=== PATIENT | male | born 1955 | race Caucasian/White ===

== ENCOUNTER → 2019-10-30 13:07 | Outpatient (CLI) | payer OTHER, SELFPAY ==
[2019-10-30 13:21] LABS: Basophils % 0.4 % (0.1-2.0); Eosinophils # 0.1 K/mm3 (0.0-0.4); Eosinophils % 1.1 % (0.1-12.0); Hematocrit 46.2 % (42.0-52.0); Hemoglobin 16.2 g/dL (14.1-18.0); Lymphocytes # 1.6 K/mm3 (0.7-4.5); Lymphocytes % 26.3 % (10-50); Mean Corpuscular HGB Conc 35.1 g/dL (31.8-35.4); Mean Corpuscular Hemoglobin 34.8 pg (27.0-31.2); Mean Platelet Volume 8.5 fl (7.4-10.4); Monocytes # 0.3 K/mm3 (0.1-1.0); Monocytes % 4.8 % (1.7-9.3); Neutrophils # 4.1 K/mm3 (1.8-7.8); Neutrophils % 67.5 % (37.0-80.0); Platelet Count 276 K/mm3 (142-424); Red Blood Count 4.66 M/mm3 (4.60-6.20); Red Cell Distribution Width 13.8 % (11.5-17.5); White Blood Count 6.1 K/mm3 (4.8-10.8)
[2019-10-30 13:43] LABS: Alanine Aminotransferase 31 U/L (12-78); Albumin Level 4.3 g/dl (3.5-5.0); Albumin/Globulin Ratio 1.4 (1.1-1.8); Alkaline Phosphatase 84 U/L (38-126); Anion Gap 10.5 mEq/L (5-15); Aspartate Amino Transferase 32 U/L (17-59); Bilirubin,Total 1.6 mg/dl (0.2-1.3); Blood Urea Nitrogen 16 mg/dl (9-20); Calcium 10.7 mg/dl (8.4-10.2); Carbon Dioxide 23 mmol/L (22.0-30.0); Chloride 110 mmol/L (98-107); Estimated Glomerular Filt Rate 75 ml/min (>60); GFR (African American) 91 ML/MIN (>60); Glucose 119 mg/dl (74-100); HDL Cholesterol 51 mg/dl (40-60); Potassium 4.5 mmoL/L (3.5-5.1); Sodium 139 mmol/L (136-145); Total Protein,Serum 7.3 g/dl (6.3-8.2); Triglycerides 275 mg/dl (30-150)
[2019-10-30 13:48] LABS: Chol/HDL Ratio 6.4 (1-3.5)
[2019-10-30 13:54] LABS: Direct LDL Cholesterol 217.42 mg/dL (100-129)
[2019-10-30 13:59] LABS: Cholesterol 330 mg/dl (140-200)
[2019-10-30 14:14] LABS: Prostate Specific Ag, Diagnost 1.36 ng/ml (0.0-4.0)
[2019-10-30 16:09] LABS: VLDL Cholesterol 55 mg/dL (0-40)
[2019-11-04 18:38] LABS: 1,25 Dihydroxy Vitamin D 69 pg/mL (.); 1,25-Dihydroxy, Vitamin D-2 <10 pg/mL (.)
[2019-11-04 18:39] LABS: 1,25-Dihydroxy, Vitamin D-3 68 pg/mL (.)
== END ==
PROVIDERS: Visit Provider Family Medicine
DX: Z00.00 Encounter for general adult medical examination without abnormal findings (principal); N50.89 Other specified disorders of the male genital organs; Z80.42 Family history of malignant neoplasm of prostate; Z80.0 Family history of malignant neoplasm of digestive organs; E78.5 Hyperlipidemia, unspecified; E67.3 Hypervitaminosis D
CPT/HCPCS: 80053; 80061; 82652; 84153; 85025

== ENCOUNTER → 2019-11-06 14:37 | Outpatient (CLI) | payer OTHER, SELFPAY ==
--- NOTE | 2019-11-06 14:46 | US_ITS ---
PROCEDURE: US TESTICULAR CLINICAL INDICATION: SCROTOL MASS Testicular nodules COMPARISON: No exams were available for comparison FINDINGS: Right testicle is 4.5 x 2.5 x 2.9 cm. Left testicle is 2.4 x 4.5 x 3 cm. No testicular mass evident. There is bilateral testicular blood flow. No hydrocele or varicocele. There may be a small right-sided epididymal cyst at 4 mm IMPRESSION: 1. No evidence of testicular mass. Bilateral blood flow noted. 2. Small right epididymal cyst Dictated by: Clifford Reyes MD 11/06/2019 18:27 Clifford Reyes MD in [place] 11/06/2019 18:27
== END ==
PROVIDERS: PCP Family Medicine; Visit Provider Family Medicine
DX: N50.811 Right testicular pain (principal)
CPT/HCPCS: 76870

== ENCOUNTER → 2019-12-21 12:12 | Outpatient (CLI) | payer OTHER, SELFPAY ==
[2019-12-21 13:48] LABS: Erythrocyte Sedimentation Rate 11 mm/hr (0-20)
[2019-12-21 14:00] LABS: Thyroid Stimulating Hormone 2.78 uIU/mL (0.465-4.68)
[2019-12-21 14:07] LABS: Ferritin 135 ng/ml (17.9-464)
[2019-12-21 14:21] LABS: Vitamin B12 459 pg/mL (239-931)
[2019-12-22 10:53] LABS: Rapid Plasma Reagin Ab Titer Non Reactive (NonRea<1:1)
[2019-12-27 17:08] LABS: Antinuclear Antibodies (ANA) Negative
== END ==
PROVIDERS: Visit Provider Specialist
DX: R90.89 Other abnormal findings on diagnostic imaging of central nervous system (principal); D75.89 Other specified diseases of blood and blood-forming organs; G47.00 Insomnia, unspecified; R41.3 Other amnesia
CPT/HCPCS: 36415; 82607; 82728; 82746; 84443; 85651; 86038; 86592; 94762

== ENCOUNTER → 2019-12-24 14:34 | Outpatient (CLI) | payer OTHER, SELFPAY ==
--- NOTE | 2019-12-24 14:47 | MR_ITS ---
PROCEDURE: MR HEAD/BRAIN WO/W CON CLINICAL INDICATION: encephalomalacia; memory loss short term memory loss, encephalomalacia. symptoms x couple years COMPARISON: No exams were available for comparison TECHNIQUE: Routine multiplanar multi echo sequences are performed without and with gadolinium enhancement. FINDINGS: No midline shift, mass effect, intracranial hemorrhage, or hydrocephalus is evident. The cerebellopontine angles, cerebellum, and brainstem have an unremarkable appearance. Nonspecific scattered periventricular and subcortical T2 white matter hyperintensities which may be due to ischemic gliotic change from microvascular disease. These areas do not demonstrate restricted diffusion or contrast enhancement. No enhancing lesions are evident. The hippocampal gyri and temporal horns are unremarkable. The pituitary, optic chiasm, and corpus callosum have an unremarkable appearance. There is a small cystic area along the right aspect of the a Don toys process measuring approximately 5 mm and may be due to small synovial cyst. No mastoid effusion or sinus air-fluid level. IMPRESSION: 1. No acute intracranial finding. 2. Nonspecific scattered periventricular and subcortical T2 white matter hyperintensities which may be due to ischemic gliotic change from microvascular disease. Migraine headache and demyelinating process are included in the differential diagnosis. Please correlate with clinical parameters. The Dictated by: Clifford Reyes MD 12/25/2019 08:29 Clifford Reyes MD in [place] 12/25/2019 08:29
[2019-12-24 15:48] LABS: Chloride 105 mmol/L (98-107); Potassium 3.9 mmoL/L (3.5-5.1); Sodium 139 mmol/L (136-145)
[2019-12-24 15:51] LABS: Anion Gap 12.9 mEq/L (5-15); Blood Urea Nitrogen 21 mg/dl (9-20); Carbon Dioxide 25 mmol/L (22.0-30.0); Estimated Glomerular Filt Rate 56 ml/min (>60); GFR (African American) 67 ML/MIN (>60); Glucose 128 mg/dl (74-100)
== END ==
PROVIDERS: PCP Family Medicine; Visit Provider Specialist
DX: R41.3 Other amnesia (principal); R90.89 Other abnormal findings on diagnostic imaging of central nervous system
CPT/HCPCS: 70553; 80048; A9576

== ENCOUNTER → 2020-01-15 10:44 | Outpatient (CLI) | payer OTHER, SELFPAY ==
[2020-01-15 14:06] LABS: Hemoglobin A1C 4.7 % (4.0-6.0)
== END ==
PROVIDERS: Visit Provider Specialist
DX: R73.9 Hyperglycemia, unspecified (principal)
CPT/HCPCS: 36415; 83036

== ENCOUNTER → 2021-10-26 17:01 | Outpatient (CLI) | payer MEDICARE, OTHER, SELFPAY ==
[2021-10-26 15:57] LABS: MANUAL DIFFERENTIAL MANUAL DIFFERENTIAL (MANUAL DIFF)
[2021-10-26 16:11] LABS: Basophils # 0.1 K/mm3 (0-0.2); Eosinophils # 0.1 K/mm3 (0.0-0.4); Eosinophils % 2.1 % (0.1-12.0); Hematocrit 46.4 % (42.0-52.0); Hemoglobin 15.4 g/dL (14.1-18.0); Lymphocytes # 1.8 K/mm3 (0.7-4.5); Mean Corpuscular HGB Conc 33.1 g/dL (31.8-35.4); Mean Corpuscular Hemoglobin 33.5 pg (27.0-31.2); Mean Corpuscular Volume 100.9 fl (80-94); Mean Platelet Volume 9.4 fl (7.4-10.4); Monocytes # 0.3 K/mm3 (0.1-1.0); Monocytes % 4.9 % (1.7-9.3); Platelet Count 298 K/mm3 (142-424); Red Blood Count 4.59 M/mm3 (4.60-6.20); Red Cell Distribution Width 13.9 % (11.5-17.5); White Blood Count 6.3 K/mm3 (4.8-10.8)
[2021-10-26 16:32] LABS: Chloride 110 mmol/L (98-107)
[2021-10-26 16:33] LABS: Potassium 4.6 mmoL/L (3.5-5.1); Sodium 140 mmol/L (136-145)
[2021-10-26 16:35] LABS: Alanine Aminotransferase 29 U/L (12-78); Anion Gap 12.6 mEq/L (5-15); Aspartate Amino Transferase 34 U/L (17-59); Carbon Dioxide 22 mmol/L (22.0-30.0)
[2021-10-26 16:36] LABS: Albumin Level 4.1 g/dl (3.5-5.0); Albumin/Globulin Ratio 1.4 (1.1-1.8); Alkaline Phosphatase 81 U/L (38-126); Bilirubin,Total 1.8 mg/dl (0.2-1.3); Calcium 9.9 mg/dl (8.4-10.2); Chol/HDL Ratio 6.6 (1-3.5); Cholesterol 290 mg/dl (140-200); Glucose 91 mg/dl (74-100); HDL Cholesterol 44 mg/dl (40-60); Total Protein,Serum 7.1 g/dl (6.3-8.2); Triglycerides 293 mg/dl (30-150); VLDL Cholesterol 59 mg/dL (0-40)
[2021-10-26 16:40] LABS: Blood Urea Nitrogen 13 mg/dl (9-20); Estimated Glomerular Filt Rate 75 ml/min (>60); GFR (African American) 90 ML/MIN (>60)
[2021-10-26 16:47] LABS: Direct LDL Cholesterol 171.98 mg/dL (100-129)
[2021-10-26 17:05] LABS: Thyroid Stimulating Hormone 1.91 uIU/mL (0.465-4.68)
[2021-10-26 17:28] LABS: Prostate Specific Ag Screen 1.3 ng/ml (0.0-4.0)
[2021-10-26 19:26] LABS: Eosinophils % 4 % (0-3); Lymphocytes % 43 % (10-50); Monocytes % 1 % (2-9); Neutrophils % 52 % (42-76); Tear Drop Cells 1+; Total Cells Counted 100
[2021-10-26 19:27] LABS: Spherocytes 2+
[2021-10-26 19:28] LABS: Platelet Estimate Normal
== END ==
LOC: LAB 10-27 00:34 → LAB.DROPOF 10-27 11:35
PROVIDERS: PCP Family Medicine; Visit Provider Family Medicine
DX: E78.5 Hyperlipidemia, unspecified (principal); Z12.5 Encounter for screening for malignant neoplasm of prostate; F32.9 Major depressive disorder, single episode, unspecified
CPT/HCPCS: 80053; 80061; 84443; 85007; 85014; 85018; 85048; 85049; G0103

== ENCOUNTER → 2021-11-02 09:25 | Outpatient (CLI) | payer MEDICARE, OTHER, SELFPAY ==
--- NOTE | 2021-11-02 09:31 | CT_ITS ---
FINAL REPORT TECHNIQUE: Axial images through the abdomen and pelvis were performed without contrast. This study was performed with techniques to keep radiation doses as low as reasonably achievable, (ALARA). Individualized dose reduction techniques using automated exposure control or adjustment of mA and/or kV according to the patient's size were employed. CLINICAL HISTORY: lower abdominal pain, in middle FINDINGS: Abdomen: There is a calcified granuloma in the medial left lung base. There is moderate fatty infiltration of the liver. The gallbladder is not identified. The spleen, pancreas, and adrenals are unremarkable. There is a 1.5 cm benign-appearing cyst in the left kidney. Pelvis: The urinary bladder is unremarkable. The appendix is not visualized. There is no pelvic mass or inflammation. There are advanced changes of degenerative disc disease at L5-S1. IMPRESSION: No acute abnormality. 1.5 cm benign-appearing left renal cyst. Moderate fatty infiltration of the liver. Reviewed, Interpreted and Dictated by Shayne Schneider MD Transcribed by Darius Disla Authenticated and [facility]
== END ==
PROVIDERS: PCP Family Medicine; Visit Provider Family Medicine
DX: R10.9 Unspecified abdominal pain (principal)
CPT/HCPCS: 74176

== ENCOUNTER 2022-01-09 08:28 | Day surgery (SDC) | payer MEDICARE, OTHER, SELFPAY ==
[2022-01-08 10:11] VITALS: BMI 33.2
[2022-01-09 08:40] VITALS: BP 132/85; PULSE 71; RESP 18; TEMP 36.1; O2SAT 97
--- NOTE | 2022-01-09 08:51 | EXP.ANES.CKL ---
[facility] Medical History History of depression Hx of anxiety disorder Surgical History History of appendectomy History of cholecystectomy Family History Other Colon cancer Prostate cancer Social History Smoking Status: Never smoker alcohol intake: current substance use type: denies use current occupational status: employed Travel in the last 8 weeks: [place] household members: spouse housing: house lives independently: Yes marital status: education level: high school special andres needs: No agree to transfusion: No do you feel safe at home: Yes victim of physical abuse: No victim of emotional abuse: No victim of sexual abuse: No would you like helpful sources: No [facility] Anesthesia Checklist Patient Identification Patient Identification: Arm Band Structural Data Admitted From: Home Planned Operative Procedure/s: colonoscopy Consent for Planned Operative Procedure(s) Verified: Yes Verified Documents: Surgical Consent and History and Physical NPO Status Verified Time NPO: 00:00 Additional verifications Anesthesia Reactions: No Airway Assessment C-Spine Mobility Assessed: Yes TMJ Mobility Assessed: Yes Dentition: Good Dentition Neurological Assessment Level of Consciousness: Awake and Alert Anesthesia Plan Anesthesia Risk discussed: Yes Anesthesia Plan: Verified ASA Class: II Anesthesia Type: MAC
[2022-01-09 09:32] VITALS: O2SAT 97
--- NOTE | 2022-01-09 10:20 | HMH.SCOPE ---
Procedure: Date: 01/09/22 Patient Date of :: 1955 Procedure Performed:: Colonoscopy with polypectomy Indications:: Screening Performing Provider:: Popeye Hernández MD Referring Provider:: Dr. Solis Sedation:: Monitored anesthesia care Procedure:: After informed consent was obtained the patient was taken to the endoscopy suite. Sedation ensued after the patient was transferred to the left lateral decubitus position. Pulse, blood pressure, and oxygen saturation were monitored throughout the procedure. Digital rectal exam revealed no significant abnormality. The colonoscope was placed in position. The entire colon was evaluated. The colonoscope was carefully removed and the patient was transferred to recovery in stable condition. Please see findings and specimens below for detail. Findings:: Bowel preparation moderate to poor Severe sigmoid tortuosity Significant lack of relaxation (particularly sigmoid) Multiple large complex polyps (see specimens) Specimens:: Lobulated complex proximal right colon polyp (cold snare) Lobulated adjacent hepatic flexure polyps (cold snare) Complex lobulated polyp at 70 cm (cold snare) Adjacent polyps at 60 cm (cold snare) Large complex pedunculated polyp at 55 cm (hot snare) Recommendations:: Timing of repeat colonoscopy is pending pathology but likely be around 1 year with extended bowel preparation. Complications:: No immediate Estimated blood obtained (mL): 1
[2022-01-09 10:22] VITALS: BP 72/56; PULSE 88; RESP 15; TEMP 36.3; O2SAT 95
[2022-01-09 10:32] VITALS: BP 87/55; PULSE 85; RESP 16; O2SAT 96
[2022-01-09 10:42] VITALS: BP 98/65; PULSE 86; RESP 17; O2SAT 96
[2022-01-09 10:52] VITALS: BP 113/62; PULSE 71; RESP 18; O2SAT 96
== END 2022-01-09 11:18 | disposition home or self-care (01) ==
PROVIDERS: PCP Family Medicine; Visit Provider Surgery
PROC: 0DJD8ZZ Inspection of Lower Intestinal Tract, Via Natural or Artificial Opening Endoscopic (ICD-10-PCS; principal; 2022-01-09 09:30)
DX: Z12.11 Encounter for screening for malignant neoplasm of colon (principal); D12.6 Benign neoplasm of colon, unspecified; Z79.899 Other long term (current) drug therapy
CPT/HCPCS: 45385; 88305; J2704

== ENCOUNTER → 2022-02-20 10:55 | Outpatient (CLI) | payer MEDICARE, OTHER, SELFPAY ==
[2022-02-20 14:08] LABS: Chol/HDL Ratio 5.6 (1-3.5); Cholesterol 258 mg/dl (140-200); HDL Cholesterol 46 mg/dl (40-60); Triglycerides 251 mg/dl (30-150); VLDL Cholesterol 50 mg/dL (0-40)
[2022-02-20 14:18] LABS: Direct LDL Cholesterol 170.84 mg/dL (100-129)
== END ==
PROVIDERS: PCP Family Medicine; Visit Provider Family Medicine
DX: E78.5 Hyperlipidemia, unspecified (principal)
CPT/HCPCS: 80061

== ENCOUNTER → 2022-11-19 09:51 | Outpatient (CLI) | payer MEDICARE, OTHER, SELFPAY ==
[2022-11-19 18:41] LABS: Basophils % 0.3 % (0.1-2.0); Eosinophils # 0.1 K/mm3 (0.0-0.4); Hematocrit 46.9 % (42.0-52.0); Lymphocytes % 22.1 % (10-50); Mean Corpuscular HGB Conc 34.1 g/dL (31.8-35.4); Mean Corpuscular Hemoglobin 33.8 pg (27.0-31.2); Mean Corpuscular Volume 99.2 fl (80-94); Mean Platelet Volume 8.4 fl (7.4-10.4); Monocytes # 0.3 K/mm3 (0.1-1.0); Monocytes % 3.3 % (1.7-9.3); Neutrophils # 6.5 K/mm3 (1.8-7.8); Neutrophils % 73.3 % (37.0-80.0); Platelet Count 287 K/mm3 (142-424); Red Blood Count 4.73 M/mm3 (4.60-6.20); Red Cell Distribution Width 13.4 % (11.5-17.5); White Blood Count 8.9 K/mm3 (4.8-10.8)
[2022-11-19 19:24] LABS: Alanine Aminotransferase 29 U/L (12-78); Albumin Level 4.2 g/dl (3.5-5.0); Albumin/Globulin Ratio 1.3 (1.1-1.8); Alkaline Phosphatase 81 U/L (38-126); Anion Gap 14.3 mEq/L (5-15); Aspartate Amino Transferase 29 U/L (17-59); Bilirubin,Total 1.6 mg/dl (0.2-1.3); Blood Urea Nitrogen 15 mg/dl (9-20); Calcium 10.6 mg/dl (8.4-10.2); Carbon Dioxide 22 mmol/L (22.0-30.0); Chloride 108 mmol/L (98-107); Chol/HDL Ratio 7.9 (1-3.5); Cholesterol 301 mg/dl (140-200); Estimated Glomerular Filt Rate 75 ml/min (>60); GFR (African American) 90 ML/MIN (>60); Globulin 3.2 g/dL (1.3-3.2); Glucose 94 mg/dl (74-100); HDL Cholesterol 38 mg/dl (40-60); Potassium 4.3 mmoL/L (3.5-5.1); Sodium 140 mmol/L (136-145); Total Protein,Serum 7.4 g/dl (6.3-8.2); Triglycerides 323 mg/dl (30-150); VLDL Cholesterol 65 mg/dL (0-40)
[2022-11-19 19:35] LABS: Direct LDL Cholesterol 173.73 mg/dL (100-129)
[2022-11-19 19:54] LABS: Prostate Specific Ag Screen 1.3 ng/ml (0.0-4.0); Thyroid Stimulating Hormone 2.33 uIU/mL (0.465-4.68)
== END ==
PROVIDERS: PCP Family Medicine; Visit Provider Family Medicine
DX: E78.5 Hyperlipidemia, unspecified (principal); G93.89 Other specified disorders of brain; Z12.5 Encounter for screening for malignant neoplasm of prostate; F32.9 Major depressive disorder, single episode, unspecified; Z79.899 Other long term (current) drug therapy
CPT/HCPCS: 80053; 80061; 84443; 85025; G0103

== ENCOUNTER → 2022-12-24 06:21 | Outpatient (CLI) | payer MEDICARE, OTHER, SELFPAY ==
--- NOTE | 2022-12-24 06:38 | NM_ITS ---
APPROVED REPORT Exam: Nuclear Stress Test Indication: HYPERLIPIDEMIA, SOB, SYNCOP, C.P. Patient Location: Outpatient Stress Tech: Amara Crockett MS Tech:Saima Quintanilla ROSI RT (R)(N)(M) Ht: 6 ft 1 in Wt: 240 lbs HR: 65 bpm BP: 146/90 mmHg BSA: 2.33 m2 Rhythm: NSR TID: 1.02 BMI: 31.6 History: HYPERLIPIDEMIA, SOB, SYNCOP, C.P. Procedure: Patient exercised on Alex protocol 8:05 minutes and sec, resting heart rate 65 bpm, resting blood pressure 146/90 mmHg, with exercise maximum heart rate achived was 140 bpm which is 97 % of the maximum predicted heart rate and blood pressure was 176/90 mmHg. Test was stopped due to SOB. Patient has average exercise capacity, achieved 10.1 METs of workload on treadmill, the blood pressure response to exercise was normal. Cardiac Stress and Resting SPECT Images: Cardiac Stress and Resting SPECT images were obtained using technetium 99m Myoview 30.0 mCi stress and 10.50 mCi at rest. Resting and stress imaging in supine position demonstrate no definite evidence of fixed or reversible perfusion defects. Gated imaging demonstrates normal global and regional LV systolic function. LVEF is calculated at 56%. Conclusion: No definite evidence of fixed or reversible perfusion defects. Gated imaging demonstrates normal global and regional LV systolic function. LVEF is calculated at 56%. Electronically signed by : Linda Ferris MD 01/01/2023 11:52:30
--- NOTE | 2022-12-24 06:45 | CA_ITS ---
APPROVED REPORT EXAM: Comprehensive 2D, Doppler, and color-flow Echocardiogram Professor Of Practice: Tiny Barillas RDCS Ht: 6 ft 0 in Wt: 246lbs BSA: 2.33 BP: 148/76 mmHg Indications: CP,SOA,HLP POST COVID 2D Dimensions LVOT 2.18 cm (M/F) 1.5-2.5 M-Mode Dimensions RVDd 2.50 cm (0.9-2.6) LA Diam 3.87 cm (1.9-4.0) LVDd 6.16 cm (3.5-5.7) Ao Diam 3.59 cm (2.0-3.7) LVDs 4.43 cm (3.5-5.7) IVSd 0.72 cm (0.6-1.1) PWd 0.80 cm (0.6-1.1) EF (Teich) 53.40% FS 28.10% EDV (Teich) 191.10 mL TAPSE 2.51 (<1.7) ESV (Teich) 89.10 mL LV Diastology E Decel Time 230.00 (160-240 msec) E/A Ratio 1.9 MED E' 8.10 (< 7 cm/sec) E'/MED E' Ratio 11.02 (>14) LAT E' 10.30 (<10 cm/sec) E/LAT E' Ratio 8.67 (>14) Mitral Valve MV E Max Jairo. 89.00 (40-130 cm/s) MV A Velocity 48.00 (40-130 cm/s) E/A Ratio 1.86 MV Decel. Time 230.00 (160-240 ms) MV PHT 67.00 ms Left Ventricle The left ventricle is normal size. The left ventricular systolic function is normal. The left ventricular ejection fraction is within the normal range. There is increased LV wall thickness. There is normal LV segmental wall motion. The left ventricular diastolic function is normal. LVEF is 55%. Right Ventricle The right ventricle is mildly dilated. The right ventricular systolic function is normal. Atria The left atrium size is normal. The right atrium size is normal. There is no Doppler evidence of interatrial shunt. Aortic Valve The aortic valve is normal in structure. There is no aortic valvular stenosis. No aortic regurgitation is present. Mitral Valve The mitral valve is normal in structure. No evidence of mitral valve stenosis. There is no mitral valve regurgitation noted. Tricuspid Valve The tricuspid valve leaflets are thin and pliable. Trace tricuspid regurgitation. There is insufficient TR jet to estimate RVSP. Pulmonic Valve The pulmonary valve is normal in structure. Trace pulmonic regurgitation. Great Vessels The aortic root is normal in size. The ascending aorta is normal in size. IVC is normal in size and collapses >50% with inspiration. Pericardium There is no pericardial effusion. Other Information Study Quality: Fair Conclusion Normal biventricular systolic function. Mild RV dilation. No significant valvular stenosis or regurgitation. Electronically signed by : Linda Ferris MD 12/29/2022 19:56:12
--- NOTE | 2022-12-24 09:03 | CA_ITS ---
APPROVED REPORT Exam: Exercise Treadmill Technologist: Amara Crockett Ht: 6 ft 0 in Wt: 246 lbs BSA: 2.33 m2 HR: 65 bpm BP: 146/90 mmHg Rhythm: NSR Indications: Chest pain, Shortness of Air Medical History Medications: Aspirin,,,,, Zetia,,,,, TAMSULOSIN,,,,, Albuterol,,,,, Zolpidem,,,,, DulOXETINE,,,,, Prednisone,,,,, SilDENAFIL,,,,, Multivitamin,,,,, Evolocumab,,,,, Stress Test Details Test: Alex HR Resting HR: 70 bpm Max Heart Rate (APMHR): 153 bpm Max HR Achieved: 149 bpm Target HR (85% APMHR): 130 bpm % of APMHR: 97 Recovery HR: 85 bpm HR response to stress: Normal HR response to stress BP Resting BP: 146.0/90.0 mmHg Max BP: 176.0/90.0 mmHg Recovery BP: 165.0/93.0 mmHg BP response to stress: Normal blood pressure response to stress. ECG Resting ECG: Sinus rhythm Stress EC.[address] depression Arrhythmia: PVCs return to baseline within 3 minutes of recovery Recovery Arrhythmia: PVCs the patient was able to exercise for a total of 8 minutes, 05 seconds. He achieved a total of 10.1 METS. He has average exercise capacity compared to age and sex matched peers. He has normal HR and BP response to exercise. Clinical Exercise duration: 08:05 min Highest Stage Achieved: Exercise capacity: 10.1 METs Overall Exercise Capacity for Age: Average Stress ECG Conclusion The patient was able to exercise for a total of 8 minutes, 05 seconds. He achieved a total of 10.1 METS. He has average exercise capacity compared to age and sex matched peers. He has normal HR and BP response to exercise. Symptoms: Dyspnea, PVC Arrhythmias/Ectopy: PAC, PVC ST-T Changes: 0.[address] depression. Conclusion: Average exercise capacity. No significant ST changes at peak stress. Myoview images are reported separately. Test Summary REST . . . . . . . Sitting REST 10:22 0.0 0.0 70 . 146/ 90 . . Stage 1 01:00 10.0 1.7 91 . . . . Stage 1 02:00 10.0 1.7 102 . . . . Stage 1 03:00 10.0 1.7 102 . 123/ 88 . . Stage 2 01:00 12.0 2.5 109 . . . . Stage 2 02:00 12.0 2.5 116 . . . . Stage 2 03:00 12.0 2.5 125 . 140/ 90 . . Stage 3 01:00 14.0 3.4 134 . . . . Stage 3 . . . . . . . Myoview Injected Stage 3 02:00 14.0 3.4 147 . . . . Stage 3 02:05 14.0 3.4 147 . . . Stop exercise at 08:05 RECOVERY 01:00 0.0 0.0 131 . 176/ 90 . . RECOVERY 02:00 0.0 0.0 102 . 176/ 90 . . RECOVERY 03:00 0.0 0.0 80 . 176/ 80 . . RECOVERY 04:00 0.0 0.0 77 . 176/ 80 . . RECOVERY 05:00 0.0 0.0 85 . 158/ 93 . . RECOVERY 06:00 0.0 0.0 79 . 158/ 93 . . RECOVERY 07:00 0.0 0.0 82 . 165/ 93 . . RECOVERY 08:00 0.0 0.0 85 . 165/ 93 . . RECOVERY 09:00 0.0 0.0 84 . 165/ 93 . . RECOVERY 10:00 0.0 0.0 91 . 165/ 93 . . RECOVERY 10:18 0.0 0.0 86 . 140/ 92 . . Electronically signed by : Linda Ferris MD 01/01/2023 11:36:43
== END ==
PROVIDERS: PCP Family Medicine; Visit Provider Physician Assistant
DX: E78.5 Hyperlipidemia, unspecified (principal); R06.09 Other forms of dyspnea; R42 Dizziness and giddiness; U07.1 COVID-19
CPT/HCPCS: 78452; 93017; 93018; 93306; A9502

== ENCOUNTER 2023-04-03 19:13 | Outpatient (CLI) | payer MEDICARE, OTHER, SELFPAY ==
[2023-04-03 18:02] LABS: Basophils % 0.3 % (0.1-2.0); Eosinophils # 0.1 K/mm3 (0.0-0.4); Eosinophils % 1.8 % (0.1-12.0); Hematocrit 45.9 % (42.0-52.0); Hemoglobin 15.2 g/dL (14.1-18.0); Lymphocytes # 1.8 K/mm3 (0.7-4.5); Lymphocytes % 26.9 % (10-50); Mean Corpuscular HGB Conc 33.1 g/dL (31.8-35.4); Mean Corpuscular Hemoglobin 35.1 pg (27.0-31.2); Mean Platelet Volume 8.7 fl (7.4-10.4); Monocytes # 0.4 K/mm3 (0.1-1.0); Monocytes % 6.6 % (1.7-9.3); Neutrophils # 4.3 K/mm3 (1.8-7.8); Neutrophils % 64.4 % (37.0-80.0); Platelet Count 250 K/mm3 (142-424); Red Blood Count 4.34 M/mm3 (4.60-6.20); Red Cell Distribution Width 13.6 % (11.5-17.5); White Blood Count 6.6 K/mm3 (4.8-10.8)
[2023-04-03 18:21] LABS: Alanine Aminotransferase 31 U/L (12-78); Albumin Level 4.1 g/dl (3.5-5.0); Albumin/Globulin Ratio 1.5 (1.1-1.8); Alkaline Phosphatase 71 U/L (38-126); Anion Gap 8.6 mEq/L (5-15); Aspartate Amino Transferase 30 U/L (17-59); Bilirubin,Total 1.2 mg/dl (0.2-1.3); Blood Urea Nitrogen 15 mg/dl (9-20); Calcium 10.8 mg/dl (8.4-10.2); Carbon Dioxide 28 mmol/L (22.0-30.0); Chloride 108 mmol/L (98-107); Chol/HDL Ratio 5.1 (1-3.5); Cholesterol 189 mg/dl (140-200); Estimated Glomerular Filt Rate 67 ml/min (>60); GFR (African American) 81 ML/MIN (>60); Globulin 2.7 g/dL (1.3-3.2); Glucose 115 mg/dl (74-100); HDL Cholesterol 37 mg/dl (40-60); Potassium 4.6 mmoL/L (3.5-5.1); Sodium 140 mmol/L (136-145); Total Protein,Serum 6.8 g/dl (6.3-8.2); Triglycerides 358 mg/dl (30-150); VLDL Cholesterol 72 mg/dL (0-40)
[2023-04-03 18:32] LABS: Direct LDL Cholesterol 89.82 mg/dL (100-129)
== END 2023-04-03 23:59 ==
PROVIDERS: PCP Family Medicine; Visit Provider Family Medicine
DX: R42 Dizziness and giddiness (principal); E78.5 Hyperlipidemia, unspecified; Z79.899 Other long term (current) drug therapy
CPT/HCPCS: 80053; 80061; 85025

== ENCOUNTER 2023-07-21 10:14 | Emergency (ER) | payer MEDICARE, OTHER, SELFPAY ==
[2023-07-21] VITALS (9 sets, daily range): BP systolic 134–153; BP diastolic 72–92; PULSE 55–81; RESP 13–21; TEMP 36.8; O2SAT 96–99; BMI 30.5
--- NOTE | 2023-07-21 10:14 | ECG_ITS ---
APPROVED REPORT Exam: Resting ECG HR:69 bpm ECG Measurements Heart Rate 69 AXES IA 142 P 52 QRSd 92 QRS 32 QT 360 T 54 QTc 379 Conclusion SINUS RHYTHM POSSIBLE RIGHT VENTRICULAR CONDUCTION DELAY [RSR (QR) IN V1/V2] SEPTAL MYOCARDIAL INFARCTION , PROBABLY OLD [40+ ms Q WAVE IN V1/V2] ABNORMAL ECG Electronically signed by : BRENNA SOLIS, 07/21/2023 12:20:52
--- NOTE | 2023-07-21 10:52 | XR_ITS ---
PROCEDURE INFORMATION: Exam: XR Chest Exam date and time: 07/21/2023 10:49 AM Age: 67 years old Clinical indication: Shortness of breath; Additional info: Sob/cp TECHNIQUE: Imaging protocol: Radiologic exam of the chest. Views: 2 views. COMPARISON: CT ABDOMEN PELVIS WO CON 11/02/2021 9:58 AM FINDINGS: Lungs: No evidence of pneumonia or interstitial edema. Pleural spaces: Unremarkable. No pleural effusion. No pneumothorax. Heart/Mediastinum: Unremarkable. No cardiomegaly. Bones/joints: Unremarkable. IMPRESSION: No evidence of pneumonia or interstitial edema.
--- NOTE | 2023-07-21 11:00 | PC.NURSE ---
243 asa given 1059
[2023-07-21] MEDS: ASPIRIN 81MG CHEWABLE TABLET 243 MG PO (11:01)
--- NOTE | 2023-07-21 11:01 | ED_ITS ---
Discharge Plan Disposition Patient Disposition: Home, Self-Care Prescriptions Prescriptions: No Action zolpidem [Ambien] 10 mg tablet 10 mg PO HS Qty: 30 3RF Repatha SureClick 140 mg/mL pen injector 140 mg SQ Q2W Qty: 2 12RF lorazepam 1 mg tablet 1 mg PO DAILY PRN (Reason: anxiety) Qty: 30 2RF sildenafil 25 mg tablet 25 mg PO DAILY PRN (Reason: sexual activity) Qty: 90 3RF Rx Instructions: administer 30 minutes to 4 hours before activity albuterol sulfate 90 mcg/actuation HFA aerosol inhaler 2 puff inhalation QID PRN (Reason: shortness of breath or wheezing) Qty: 8.5 10RF Rx Instructions: please provide spacer and instructions duloxetine 60 mg capsule,delayed release(DR/EC) See Rx Instructions .ROUTE .COMPLEX Qty: 90 0RF Dose Instruction: TAKE 1 CAPSULE BY MOUTH DAILY Rx Instructions: TAKE 1 CAPSULE BY MOUTH DAILY tamsulosin 0.4 mg capsule See Rx Instructions .ROUTE .COMPLEX Qty: 90 0RF Dose Instruction: TAKE 1 CAPSULE BY MOUTH DAILY Rx Instructions: TAKE 1 CAPSULE BY MOUTH DAILY multivitamin Tablet 1 tab PO DAILY aspirin 81 mg Tablet,Delayed Release (Dr/Ec) 81 mg PO DAILY ezetimibe [Zetia] 10 mg tablet 10 mg PO DAILY Referrals Follow up/Referrals: Amandeep No MD [Staff Physician] - See instructions Arianna Cunningham MD [Physician] - See instructions Cayetano Solis MD [Primary Care Provider] - See instructions Activity Restrictions/Add. Instructions Additional Instructions/Restrictions: At this time it was felt you are safe to be discharged home. If new or worsening symptoms please do not hesitate to return the emergency department. Please follow-up with Dr. No's office at 1 PM tomorrow, tell them you were seen in the emergency department and this is when Dr. No wanted you seen when you arrive to clinic. It may also be worthwhile to call and schedule appointment with our lung doctor, Dr. Cunningham. Please call and schedule this as soon as you are able. Clinical Impressions Clinical Impression: Dyspnea, Chest pain Discharge ED Provider: Alek Yin General Chief Complaint: Chest Pain Stated Complaint: chest pain Time Seen by Provider: 07/21/23 10:15 Mode of Arrival: Ambulatory Source of Information: Patient Limitations: No Limitations Description of Symptoms (Recalled from ER Triage Doc. by RN): pt to ed c/o left sided chest pain that started last night at rest. pt states the pain is sharp in nature and comes and goes. pt states he has been seeing cardiology for increased SOA. pt denies cardiac hx. History of Present Illness HPI narrative: Patient is a 67-year-old male with past medical history of hyperlipidemia, previous COVID-19, dyspnea who presents emergency department for evaluation of chest pain and dyspnea. With respect to shortness of breath, it has been ongoing for over a year, worse with exertion. 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 He has had intermittent left sternal border stabbing transient chest pain that is very short in duration with complete resolution in the interim. He has reportedly have a previous echo, he presents here for continued evaluation. Per chart review patient had a stress test in [address] changes at peak stress. Related Data Home Medications Medication Instructions Recorded Confirmed aspirin 81 mg tablet,delayed 81 mg PO DAILY Supplement 01/08/22 04/03/23 release ezetimibe 10 mg tablet (Zetia) 10 mg PO DAILY Depression 01/08/22 04/03/23 multivitamin 1 tab PO DAILY Supplement 01/08/22 04/03/23 Previous Rx's Medication Instructions Recorded sildenafil 25 mg tablet 25 mg PO DAILY PRN sexual activity 03/09/22 #90 tabs albuterol sulfate 90 mcg/actuation 2 puff inhalation QID PRN 12/03/22 aerosol inhaler shortness of breath or wheezing #8.5 grams zolpidem 10 mg tablet (Ambien) 10 mg PO HS #30 tabs 01/09/23 evolocumab 140 mg/mL subcutaneous 140 mg SQ Q2W #2 mL 04/03/23 pen injector (Repathtere Truong) lorazepam 1 mg tablet 1 mg PO DAILY PRN anxiety #30 tabs 04/03/23 duloxetine 60 mg capsule,delayed See Rx Instructions .Route 06/24/23 release .COMPLEX #90 caps tamsulosin 0.4 mg capsule See Rx Instructions .Route 06/24/23 .COMPLEX #90 caps Allergies Allergy/AdvReac Type Severity Reaction Status Date / Time Fdpglzi-EER-AuE Reductase AdvReac Intermediate CAN'T MOVE Verified 07/21/23 11:00 Inhibitor PFSH [facility] Disclaimer: The information contained in this section may have been updated after the patient was seen, as this information can be updated by other users. Medical History History of depression Hx of anxiety disorder Surgical History History of appendectomy History of cholecystectomy Family History Other Colon cancer Prostate cancer Social History Smoking Status: Never smoker alcohol intake: current alcohol intake frequency: holidays/special occasions only substance use type: denies use current occupational status: employed Travel in the last 8 weeks: [place] the [employer] [place] household members: spouse housing: house lives independently: Yes marital status: education level: high school special andres needs: No agree to transfusion: No do you feel safe at home: Yes victim of physical abuse: No victim of emotional abuse: No victim of sexual abuse: No would you like helpful sources: No ROS Obtained: Yes Systems reviewed as appropriate & no additional complaints except as documented Physical Exam General General appearance: alert and in no apparent distress Head Head exam: atraumatic and normocephalic Eye Eye exam: Present PERRL ENT ENT exam: Present mucous membranes moist Neck Neck exam: Present normal inspection Chest Chest inspection: Present normal inspection and symmetric chest wall rise Respiratory Respiratory exam: Present normal lung sounds bilaterally; Absent respiratory distress Cardiovascular Cardiovascular exam: Present regular rate and normal rhythm Abdominal Exam Abdominal exam: Present soft; Absent tenderness Extremities Exam Extremities exam: Present normal inspection and other (No pitting edema BLE) Neurological Exam Neurological exam: Present alert Psychiatric Psychiatric exam: Present normal affect Skin Skin exam: Present warm and dry HEART Score HEART Score HEART Score assessment performed?: Yes History (anamnesis): Moderately suspicious ECG: Non-specific disturbance Age: >65 years Risk factors: 1-2 risk factors Troponin: </= normal limit HEART Score: 5 Critical Care Critical Care Time Critical Care Time: No Medical Decision Making Ahmet Inquiry Pt receiving controlled substance: No Vital Signs Vital Signs: 07/21/23 10:29 07/21/23 10:31 07/21/23 11:16 Temperature 98.2 F Temperature Source Oral Pulse Rate 68 71 Pulse Rate [Left Radial] 81 Respiratory Rate 20 15 13 Blood Pressure 149/87 H 134/74 Blood Pressure [Right Arm] 149/87 H Blood Pressure Mean [Right Arm] 107 02 Sat by Pulse Oximetry 97 99 98 Oxygen Delivery Method Room Air Room Air 07/21/23 11:31 07/21/23 12:00 07/21/23 12:30 Temperature Temperature Source Pulse Rate 74 72 62 Pulse Rate [Left Radial] Respiratory Rate 18 21 19 Blood Pressure 149/80 H 153/87 H 140/75 Blood Pressure [Right Arm] Blood Pressure Mean [Right Arm] 02 Sat by Pulse Oximetry 97 96 96 Oxygen Delivery Method Room Air Room Air 07/21/23 13:00 07/21/23 13:30 Temperature Temperature Source Pulse Rate 62 64 Pulse Rate [Left Radial] Respiratory Rate 20 19 Blood Pressure 141/92 H 138/73 Blood Pressure [Right Arm] Blood Pressure Mean [Right Arm] 02 Sat by Pulse Oximetry 96 98 Oxygen Delivery Method Room Air Room Air Lab Data Labs: Lab Results 07/21/23 10:24: WBC 5.5, RBC 4.28 L, Hgb 14.7, Hct 44.1, MCV 102.9 H, MCH 34.2 H , MCHC 33.3, RDW 13.8, Plt Count 231, MPV 8.2, Neut % (Auto) 61.5, Lymph % (Auto) 30.0, [place] % (Auto) 5.7, Eos % (Auto) 2.3, Baso % (Auto) 0.6, Neut # (Auto) 3.4, Lymph # (Auto) 1.6, [place] # (Auto) 0.3, Eos # (Auto) 0.1, Baso # (Auto) 0.0, D-Dimer 0.33, Sodium 138, Potassium 4.2, Chloride 108 H, Carbon Dioxide 26, Anion Gap 8.2, BUN 18, Creatinine 1.00, Estimated Creat Clear 103, Estimated GFR 75, Est GFR ( Amer) 90, Glucose 126 H, Calcium 10.3 H, T otal Bilirubin 1.4 H, AST 36, ALT 32, Alkaline Phosphatase 64, Troponin I < 0.01, NT-Pro-B Natriuret Pep 50.2, Total Protein 6.8, Albumin 4.0, Globulin 2.8, Albumin/Globulin Ratio 1.4 07/21/23 13:29: Troponin I < 0.01 07/21/23 10:24 07/21/23 10:24 Response Orders (Tests/Meds): ED MEDICATIONS Discontinued Medications Generic Name Dose Route Start Last Admin Trade Name Tessa PRN Reason Stop Dose Admin Aspirin 324 mg 07/21/23 10:52 07/21/23 10:59 Aspirin 81mg Chewable Tablet PO 07/21/23 10:53 Not Given ONCE ONE Aspirin 243 mg 07/21/23 10:52 07/21/23 11:01 Aspirin 81mg Chewable Tablet PO 07/21/23 10:53 243 mg ONCE ONE Administration ORDERS Category Date Time Status CXR 2 view (NOT portable) [XR chest 2V] Stat Exams 07/21/23 10:52 Completed BNP [NT Pro Brain Natriuretic Pep.] Stat Lab 07/21/23 10:24 Completed CBC [Complete Blood Count Auto Diff] Stat Lab 07/21/23 10:24 Completed CMP [Comprehensive Metabolic Panel] Stat Lab 07/21/23 10:24 Completed D-Dimer Stat Lab 07/21/23 10:24 Completed Trop I [Troponin I] Stat Lab 07/21/23 10:24 Completed Troponin I Q3H Lab 07/21/23 13:29 Completed Troponin I Q3H Lab 07/21/23 17:00 Ordered ECG Data Tracing #1: ECG Narrative: Independently interpreted by me, rate of 69, rhythm is regular, axis is normal, no ST elevation in anatomical contiguous leads, Q waves in the septal leads. Tracing #2: ECG Narrative: Independently interpreted by me, rate is 63, rhythm is regular, no ST elevation in anatomical Contiguous leads, no dynamic changes, QTc 418. MDM Narrative Medical Decision Narrative: In summary patient is a 67-year-old male with past medical history described above who presents emergency department for evaluation of intermittent chest pain and chronic shortness of breath. Patient is hemodynamically stable and nontoxic-appearing upon arrival, afebrile. Differential diagnosis includes ACS, structural lung disease resulting in dyspnea, pulmonary embolism, among others. Workup be conducted with hematologic labs, chest x-ray, EKG, serial troponins, D-dimer. Initial inventions include aspirin. Initial workup reviewed by me, hematologic labs are nonactionable, initial troponin undetectably low, D-dimer excludes low risk aortic dissection as well as pulmonary embolism. The patient was placed in observation status at 12:30 PM. Medical necessity for observational status is serial troponins. The patient was provided serial reevaluations and cardiac monitoring while awaiting results. Repeat EKG shows no dynamic changes. Results of observation are remarkable for serial negative troponins, because of this I feel the patient can be discharged and follow-up tomorrow with Dr. No at 1 PM. Total time in observation 2 hours and 3 minutes.
[2023-07-21 11:06] LABS: Chloride 108 mmol/L (98-107); Potassium 4.2 mmoL/L (3.5-5.1); Sodium 138 mmol/L (136-145)
[2023-07-21 11:09] LABS: Alanine Aminotransferase 32 U/L (12-78); Albumin/Globulin Ratio 1.4 (1.1-1.8); Alkaline Phosphatase 64 U/L (38-126); Anion Gap 8.2 mEq/L (5-15); Aspartate Amino Transferase 36 U/L (17-59); Bilirubin,Total 1.4 mg/dl (0.2-1.3); Blood Urea Nitrogen 18 mg/dl (9-20); Carbon Dioxide 26 mmol/L (22.0-30.0); Creatinine Clearance Estimated 103 mL/min (50-200); Estimated Glomerular Filt Rate 75 ml/min (>60); GFR (African American) 90 ML/MIN (>60); Globulin 2.8 g/dL (1.3-3.2); Total Protein,Serum 6.8 g/dl (6.3-8.2)
[2023-07-21 11:10] LABS: Calcium 10.3 mg/dl (8.4-10.2); Glucose 126 mg/dl (74-100)
[2023-07-21 11:14] LABS: Basophils % 0.6 % (0.1-2.0); D-Dimer 0.33 ug/mL (0.0-0.5); Eosinophils # 0.1 K/mm3 (0.0-0.4); Eosinophils % 2.3 % (0.1-12.0); Hematocrit 44.1 % (42.0-52.0); Hemoglobin 14.7 g/dL (14.1-18.0); Lymphocytes # 1.6 K/mm3 (0.7-4.5); Mean Corpuscular HGB Conc 33.3 g/dL (31.8-35.4); Mean Corpuscular Hemoglobin 34.2 pg (27.0-31.2); Mean Corpuscular Volume 102.9 fl (80-94); Mean Platelet Volume 8.2 fl (7.4-10.4); Monocytes # 0.3 K/mm3 (0.1-1.0); Monocytes % 5.7 % (1.7-9.3); Neutrophils # 3.4 K/mm3 (1.8-7.8); Neutrophils % 61.5 % (37.0-80.0); Platelet Count 231 K/mm3 (142-424); Red Blood Count 4.28 M/mm3 (4.60-6.20); Red Cell Distribution Width 13.8 % (11.5-17.5); White Blood Count 5.5 K/mm3 (4.8-10.8)
[2023-07-21 11:19] LABS: NT Pro Brain Natriuretic Pep. 50.2 pg/mL (0-125)
[2023-07-21 11:27] LABS: Troponin I < 0.01 ng/ml (0.00-0.034)
--- NOTE | 2023-07-21 13:27 | ECG_ITS ---
APPROVED REPORT Exam: Resting ECG HR:63 bpm ECG Measurements Heart Rate 63 AXES LA 135 P 47 QRSd 97 QRS 25 QT 410 T 31 QTc 418 Conclusion SINUS RHYTHM POSSIBLE RIGHT VENTRICULAR CONDUCTION DELAY [RSR (QR) IN V1/V2] BORDERLINE ECG Electronically signed by : BRENNA SOLIS, 07/22/2023 22:34:41
[2023-07-21 14:32] LABS: Troponin I < 0.01 ng/ml (0.00-0.034)
== END 2023-07-21 14:50 | disposition home or self-care (01) ==
PROVIDERS: Emergency Provider Emergency Medicine; PCP Family Medicine
DX: R07.9 Chest pain, unspecified (principal); R06.02 Shortness of breath; E78.5 Hyperlipidemia, unspecified; Z86.16 Personal history of COVID-19
CPT/HCPCS: 71046; 80053; 83880; 84484; 85025; 85378; 93005; 99284

== ENCOUNTER 2023-07-26 08:57 | Day surgery (SDC) | payer MEDICARE, OTHER, SELFPAY ==
[2023-07-26] VITALS (11 sets, daily range): BP systolic 117–169; BP diastolic 63–96; PULSE 60–80; RESP 16–20; TEMP 36.6; O2SAT 90–97; BMI 34.8
--- NOTE | 2023-07-26 07:12 | IR_ITS ---
APPROVED REPORT Patient Location: Outpatient Global Director [employer] Change: ROSI James RT (R) PROCEDURES Left heart catheterization Left ventriculogram Selective coronary angiogram INDICATION Recalcitrant angina pectoris, Suspected coronary artery disease Informed consent was obtained prior to the procedure. COMPLICATIONS NONE Estimated Blood Loss: LESS THAN 10 ML TECHNIQUE One percent lidocaine used to anesthetize the right anterior aspect of the wrist. The right radial artery was accessed via the Seldinger technique. A 6 Qatari sheath was placed in the right radial artery. 2.5 mg of Verapamil, 800 mcg of nitroglycerin, 1mg Lidocaine and 5000 U Heparin were given through the arterial sheath. The papa catheter was also used to perform left heart catheterization, left ventriculogram and selective coronary angiogram. At the end of the procedure the sheath was removed good hemostasis was achieved using Traclet band, patient was transferred to the postop holding area in stable condition. ANGIOGRAPHIC RESULTS The left main artery Short but normal The left anterior descending artery Has proximal smooth 10 to 20% stenosis with remaining vessel widely patent. TITA II flow is present down the entire LAD The circumflex artery Large dominant widely patent. TITA II flow was present down the entire circumflex artery The right coronary artery Vestigial normal The ROGERS ventriculogram reveals Normal 65% The left ventricular end-diastolic pressure 10 mmHg IMPRESSION Mild coronary artery disease TITA II flow down the LAD and dominant circumflex artery consistent with endothelial dysfunction which is the likely etiology for patient's angina Normal ejection fraction Normal LVEDP PLAN 1. Continue risk factor modification 2. Treatment of endothelial dysfunction Electronically signed by : Amandeep No MD 07/26/2023 11:44:06
[2023-07-26 09:32] LABS: Basophils # 0.1 K/mm3 (0-0.2); Basophils % 1.2 % (0.1-2.0); Eosinophils # 0.2 K/mm3 (0.0-0.4); Eosinophils % 2.8 % (0.1-12.0); Hematocrit 47.3 % (42.0-52.0); Hemoglobin 15.5 g/dL (14.1-18.0); Lymphocytes # 1.5 K/mm3 (0.7-4.5); Lymphocytes % 26.4 % (10-50); Mean Corpuscular HGB Conc 32.8 g/dL (31.8-35.4); Mean Corpuscular Hemoglobin 34.2 pg (27.0-31.2); Mean Corpuscular Volume 104.4 fl (80-94); Mean Platelet Volume 7.8 fl (7.4-10.4); Monocytes # 0.3 K/mm3 (0.1-1.0); Monocytes % 4.8 % (1.7-9.3); Neutrophils # 3.7 K/mm3 (1.8-7.8); Neutrophils % 64.7 % (37.0-80.0); Platelet Count 244 K/mm3 (142-424); Red Blood Count 4.53 M/mm3 (4.60-6.20); Red Cell Distribution Width 13.8 % (11.5-17.5); White Blood Count 5.8 K/mm3 (4.8-10.8)
[2023-07-26 09:41] LABS: Anion Gap 14.2 mEq/L (5-15); Blood Urea Nitrogen 18 mg/dl (9-20); Calcium 10.4 mg/dl (8.4-10.2); Carbon Dioxide 24 mmol/L (22.0-30.0); Chloride 108 mmol/L (98-107); Creatinine Clearance Estimated 107 mL/min (50-200); Estimated Glomerular Filt Rate 67 ml/min (>60); GFR (African American) 81 ML/MIN (>60); Glucose 101 mg/dl (74-100); Potassium 4.2 mmoL/L (3.5-5.1); Sodium 142 mmol/L (136-145)
[2023-07-26] MEDS: HEPARIN 1,000 UNITS/500ML NS (CATH LAB) 3000 UNIT IV (11:18)
[2023-07-26] MEDS: NITROGLYCERIN 800MCG/8ML SYR (CATH LAB) 800 MCG IA (11:18)
[2023-07-26] MEDS: LIDOCAINE 1% 10ML MDV 20 ML IJ (11:18)
[2023-07-26] MEDS: HEPARIN 1,000 UNITS/ML 10ML VIAL (CATH LAB) 10000 UNIT IV (11:18)
[2023-07-26] MEDS: VERAPAMIL 2.5MG/ML 2ML VIAL 2.5 MG IV (11:18)
[2023-07-26] MEDS: diphenhydrAMINE 50MG/ML VIAL 50 MG IV (11:18)
[2023-07-26] MEDS: FENTANYL 100MCG/2ML VIAL 50 MCG IV (11:19)
[2023-07-26] MEDS: 0.9 % SODIUM CHLORIDE 500 ML 25 ML IV (11:19)
[2023-07-26] MEDS: MIDAZOLAM HCL 1MG/1ML 5ML VIAL 1 MG IV (11:19)
[2023-07-26] MEDS: IOPAMIDOL-370 (76%);100ML BOTTLE 50 ML IV (12:47)
== END 2023-07-26 14:20 | disposition home or self-care (01) ==
PROVIDERS: PCP Family Medicine; Visit Provider Internal Medicine
DX: I25.110 Atherosclerotic heart disease of native coronary artery with unstable angina pectoris (principal); R06.02 Shortness of breath; R53.83 Other fatigue; Z79.899 Other long term (current) drug therapy; E78.5 Hyperlipidemia, unspecified
CPT/HCPCS: 80048; 85025; 93458; 99152; C1725; C1769; J1644; J2250; J3010; Q9967

== ENCOUNTER 2023-10-15 09:05 | Day surgery (SDC) | payer MEDICARE, OTHER, SELFPAY ==
[2023-10-10 10:16] VITALS: BMI 33.2
[2023-10-15 09:23] VITALS: BP 162/105; PULSE 72; RESP 18; TEMP 36.1; O2SAT 98
--- NOTE | 2023-10-15 09:23 | HMH.SCOPE ---
Procedure: Date: 10/15/23 Patient Date of :: 1955 Procedure Performed:: Colonoscopy with polypectomy Indications:: History of colon polyps Colonoscopy December 2021 was complicated by moderate to poor bowel preparation, severe tortuosity, and very poor relaxation. Multiple large complex tubular adenomas between 55 cm in the right colon were excised. Performing Provider:: Popeye Hernández MD Referring Provider:: . Sedation:: Monitored anesthesia care Procedure:: After informed consent was obtained the patient was taken to the endoscopy suite. Sedation ensued after the patient was transferred to the left lateral decubitus position. Pulse, blood pressure, and oxygen saturation were monitored throughout the procedure. Digital rectal exam revealed no significant abnormality. The colonoscope was placed in position. The entire colon was evaluated. The colonoscope was carefully removed and the patient was transferred to recovery in stable condition. Please see findings and specimens below for detail. Findings:: Bowel preparation fair to moderate Fairly severe spasticity/lack of relaxation Significant tortuosity (particularly sigmoid) Polyps (see specimen) Specimens:: Polyp at ileocecal valve (cold biopsy forceps) Right colon polyp (cold snare) Polyp at 15 cm (cold snare) Recommendations:: Timing of repeat colonoscopy is pending pathology but likely be around 2-3 years secondary to persistent spasticity/lack of relaxation and tortuosity along with polyps noted on short-term repeat colonoscopy. Complications:: No immediate Estimated blood obtained (mL): 1 Colonoscopy Component Colonoscopy Component Was a colonoscopy performed during today's procedure?: Yes Recommended follow up colonoscopy of at least 10 years?: No If no, follow up colonoscopy recommended in ___ years?: (See above) Reason for not recommending >/= 10 yr follow-up interval?: (See above)
--- NOTE | 2023-10-15 10:14 | EXP.ANES.CKL ---
[facility] Disclaimer: The information contained in this section may have been updated after the patient was seen, as this information can be updated by other users. Medical History Hyperlipidemia CAD (coronary artery disease) Fatigue Worsening angina History of depression Hx of anxiety disorder Surgical History H/O cardiac catheterization History of cholecystectomy History of appendectomy Family History Other Colon cancer Prostate cancer Social History Smoking Status: Never smoker alcohol intake: current alcohol intake frequency: holidays/special occasions only substance use type: denies use current occupational status: employed Travel in the last 8 weeks: None household members: spouse housing: house lives independently: Yes marital status: education level: high school special andres needs: No agree to transfusion: No do you feel safe at home: Yes victim of physical abuse: No victim of emotional abuse: No victim of sexual abuse: No would you like helpful sources: No [facility] Anesthesia Checklist Patient Identification Patient Identification: Arm Band and Verbal (Name & ) Structural Data Admitted From: Home Planned Operative Procedure/s: Colonoscopy Consent for Planned Operative Procedure(s) Verified: Yes Verified Documents: Surgical Consent and History and Physical NPO Status Verified Time NPO: 00:00 Additional verifications Anesthesia Reactions: No Airway Assessment Mallampati Score:: Class II C-Spine Mobility Assessed: Yes TMJ Mobility Assessed: Yes Dentition: Poor Dentition Neurological Assessment Level of Consciousness: Awake Hx Seizures: No Numbness or tingling in extremities: No Anesthesia Plan Anesthesia Risk discussed: Yes Anesthesia Plan: Verified ASA Class: II Anesthesia Type: MAC
[2023-10-15 10:40] VITALS: O2SAT 98
[2023-10-15 11:26] VITALS: BP 112/58; PULSE 64; RESP 18; TEMP 36.8; O2SAT 97
[2023-10-15 11:36] VITALS: BP 112/62; PULSE 61; RESP 18; TEMP 36.7; O2SAT 96
[2023-10-15 11:46] VITALS: BP 141/47; PULSE 65; RESP 18; O2SAT 99
[2023-10-15 11:56] VITALS: BP 136/84; PULSE 66; RESP 18; TEMP 36.6; O2SAT 99
== END 2023-10-15 12:02 | disposition home or self-care (01) ==
PROVIDERS: PCP Family Medicine; Visit Provider Surgery
PROC: 0DJD8ZZ Inspection of Lower Intestinal Tract, Via Natural or Artificial Opening Endoscopic (ICD-10-PCS; CPT 45380; principal; 2023-10-15 09:30)
DX: Z12.11 Encounter for screening for malignant neoplasm of colon (principal); Z86.010 Personal history of colon polyps; D12.2 Benign neoplasm of ascending colon; D12.0 Benign neoplasm of cecum; D12.5 Benign neoplasm of sigmoid colon
CPT/HCPCS: 45380; 45385; J2704; J7120

== ENCOUNTER 2023-12-11 09:58 | Outpatient (CLI) | payer MEDICARE, OTHER, SELFPAY ==
[2023-12-11 11:00] VITALS: PULSE 80; PULSE 88
[2023-12-11] MEDS: ALBUTEROL 0.083% 2.5 MG/3 ML NEB IH (11:00)
== END 2023-12-11 23:59 | disposition home or self-care (01) ==
PROVIDERS: PCP Family Medicine; Visit Provider Internal Medicine Pulmonary Disease
DX: R06.09 Other forms of dyspnea (principal)
CPT/HCPCS: 94060; 94618; 94640; 94726; 94729; J7613

== ENCOUNTER 2024-06-10 08:31 | Outpatient (CLI) | payer MEDICARE, OTHER, SELFPAY ==
[2024-06-10 18:48] LABS: Basophils % 0.3 % (0.1-2.0); Eosinophils # 0.1 Kmm3 (0.0-0.4); Eosinophils % 1.1 % (0.1-12.0); Hematocrit 43.8 % (42.0-52.0); Hemoglobin 15.3 g/dL (14.1-18.0); Lymphocytes # 1.6 K/mm3 (0.7-4.5); Lymphocytes % 23.7 % (10-50); Mean Corpuscular HGB Conc 34.9 g/dL (31.8-35.4); Mean Corpuscular Hemoglobin 34.6 pg (27.0-31.2); Mean Corpuscular Volume 99.1 fl (80-94); Mean Platelet Volume 10.1 fl (7.4-10.4); Monocytes # 0.3 K/mm3 (0.1-1.0); Monocytes % 4.7 % (1.7-9.3); Neutrophils # 4.7 K/mm3 (1.8-7.8); Nucleated Red Blood Cells # 0 10^3/uL; Nucleated Red Blood Cells % 0 %; Platelet Count 255 K/mm3 (142-424); Red Blood Count 4.42 M/mm3 (4.60-6.20); Red Cell Distribution Width 12.6 % (11.5-17.5); White Blood Count 6.7 K/mm3 (4.8-10.8)
[2024-06-10 19:07] LABS: Alanine Aminotransferase 39 U/L (12-78); Albumin Level 4.2 g/dl (3.5-5.0); Albumin/Globulin Ratio 1.6 (1.1-1.8); Alkaline Phosphatase 73 U/L (38-126); Anion Gap 6.5 mEq/L (5-15); Aspartate Amino Transferase 31 U/L (17-59); Bilirubin,Total 1.3 mg/dl (0.2-1.3); Blood Urea Nitrogen 14 mg/dl (9-20); Carbon Dioxide 24 mmol/L (22.0-30.0); Chloride 111 mmol/L (98-107); Cholesterol 186 mg/dl (140-200); Estimated Glomerular Filt Rate 74 ml/min (>60); GFR (African American) 90 ML/MIN (>60); Globulin 2.6 g/dL (1.3-3.2); Glucose 99 mg/dl (74-100); HDL Cholesterol 47 mg/dl (40-60); Potassium 4.5 mmoL/L (3.5-5.1); Sodium 137 mmol/L (136-145); Total Protein,Serum 6.8 g/dl (6.3-8.2); Triglycerides 225 mg/dl (30-150); VLDL Cholesterol 45 mg/dL (0-40)
[2024-06-10 19:17] LABS: Direct LDL Cholesterol 89.87 mg/dL (100-129)
[2024-06-10 19:38] LABS: Prostate Specific Ag Screen 1.8 ng/ml (0.0-4.0)
[2024-06-10 20:25] LABS: Hemoglobin A1C 4.7 % (4.0-6.0)
[2024-06-12 11:19] LABS: Testosterone,Total 372 ng/dL (264-916)
== END 2024-06-10 23:59 | disposition home or self-care (01) ==
LOC: LAB.DROPOF 06-12 08:32
PROVIDERS: PCP Family Medicine; Visit Provider Family Medicine
DX: Z13.1 Encounter for screening for diabetes mellitus (principal); Z12.5 Encounter for screening for malignant neoplasm of prostate; R51.9 Headache, unspecified; R53.83 Other fatigue; E78.5 Hyperlipidemia, unspecified; G47.00 Insomnia, unspecified
CPT/HCPCS: 80053; 80061; 83036; 84403; 85025; G0103